=== PATIENT | male | born 1945 | race Caucasian/White ===

== ENCOUNTER 2017-07-07 09:06 | Emergency (ER) | payer OTHER ==
[2017-07-07] MEDS ORDERED: Sodium Chloride 0.9% 10 ML Syringe FLUSH PRN (09:14)
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
[2017-07-07] MEDS ORDERED: HYDROmorphone 1 MG/ML Syringe IM ONE (11:11)
[2017-07-07 11:29] VITALS: BP 162/87
== END 2017-07-07 11:37 | disposition home or self-care (01) ==
LOC: JP.ED 09:06
DX: R51 Headache (principal); Z87.891 Personal history of nicotine dependence; I10 Essential (primary) hypertension; Z79.899 Other long term (current) drug therapy; Z88.2 Allergy status to sulfonamides
CPT/HCPCS: 36415; 70450; 80053; 82962; 85025; 96372; 99284; J1170; J7050; 99283

== ENCOUNTER 2018-09-18 10:37 | Emergency (ER) | payer OTHER ==
[2018-09-18 10:57] VITALS: BP 148/71
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
--- NOTE | 2018-09-18 12:32 | CT ---
Head wo Cont CLINICAL HISTORY: Double vision COMPARISON: 07/07/2017 TECHNIQUE: Transverse scans were obtained from the base of the skull through the vertex without IV contrast on a multislice, multidetector CT scanner. Auto dosage reduction and iterative reconstruction techniques employed. FINDINGS: There is a well-demarcated focus of encephalomalacia involving the right occipital lobe. There is some scattered low-attenuation in the periventricular and subcortical white matter There is no mass effect, hemorrhage, or extraaxial collection. The basal cisterns and sulci over the convexities are prominent. The ventricles are asymmetric with some mild ex vacuo dilatation of the right lateral ventricle. IMPRESSION: Focus of stable encephalomalacia in the right the occipital lobe at the site of previous hemorrhage in 2016 Atrophic changes Chronic ischemic microvascular changes
== END 2018-09-18 13:06 | disposition home or self-care (01) ==
LOC: JP.ED 10:37
DX: R42 Dizziness and giddiness (principal); I10 Essential (primary) hypertension; E78.00 Pure hypercholesterolemia, unspecified; Z95.5 Presence of coronary angioplasty implant and graft; Z79.899 Other long term (current) drug therapy; Z88.2 Allergy status to sulfonamides
CPT/HCPCS: 36415; 70450; 70450-26; 80053; 85025; 93005; 93010; 99285-25

== ENCOUNTER 2019-05-01 16:05 | Emergency (ER) | payer OTHER ==
[2019-05-01] MEDS ORDERED: Bacitracin Oint 1 GM U/D Packet TOP ONE (17:51)
[2019-05-01] MEDS ORDERED: Lidocaine 1% with EPINEPHrine 1:100,000 50 ML MDV SUBCUT STA (17:51)
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
[2019-05-01 18:21] VITALS: BP 152/80; PULSE 69
[2019-05-01] MEDS ORDERED: fentaNYL 100 MCG/2 ML SDV NASBOTH ONE (18:24)
--- NOTE | 2019-05-01 18:57 | CRLCT ---
INDICATION: Head injury TECHNIQUE: Head CT without contrast. COMPARISON: September 18, 2018 FINDINGS: CSF spaces: Within normal limits for age. Brain parenchyma: There are nonspecific low attenuation white matter changes consistent with chronic microvascular disease. No sign of mass, hemorrhage, or midline shift. Encephalomalacia in the right occipital lobe with associated ex vacuo dilatation of the right lateral ventricle. Skull base and calvarium: The visualized paranasal sinuses and mastoid air cells demonstrate no acute or significant findings. The visualized orbits are grossly unremarkable. No skull fractures. There is intracranial atherosclerosis. Soft tissue contusion of the right forehead. IMPRESSION: 1. No acute intracranial hemorrhage or skull fracture. Soft tissue contusion on the right forehead. 2. Nonspecific white matter disease, typical of chronic microvascular disease. 3. 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 Please note that all CT scans at this facility use dose modulation, iterative reconstruction, and/or weight-based dosing when appropriate to reduce radiation dose to as low as reasonably achievable. Dictated by Darlene Caceres MD @ May 01 2019 6:53PM Signed by Dr. Darlene Caceres @ May 01 2019 6:56PM
--- NOTE | 2019-05-01 19:23 | CRLCT ---
INDICATION: Head injury, contusion on right forehead TECHNIQUE: CT maxillofacial without contrast. COMPARISON: None FINDINGS: Facial bones: No fractures or bone lesions. Specifically the nasal bones, temporomandibular joints, maxilla and mandible appear intact. Orbits and globes: Unremarkable. Sinuses: No acute or significant findings. Soft tissues: Small soft tissue contusion on the right forehead. Anterior surgical plate and screw hardware at C4. IMPRESSION: No acute fracture. Soft tissue contusion in the right forehead. Please note that all CT scans at this facility use dose modulation, iterative reconstruction, and/or weight-based dosing when appropriate to reduce radiation dose to as low as reasonably achievable. Dictated by Darlene Caceres MD @ May 01 2019 6:56PM (Electronically Signed)
== END 2019-05-01 20:03 | disposition home or self-care (01) ==
LOC: JP.ED 16:05
DX: S01.81XA Laceration without foreign body of other part of head, initial encounter (principal); I10 Essential (primary) hypertension; E78.00 Pure hypercholesterolemia, unspecified; Z79.899 Other long term (current) drug therapy; Z88.2 Allergy status to sulfonamides; Z90.49 Acquired absence of other specified parts of digestive tract; Y04.8XXA Assault by other bodily force, initial encounter
CPT/HCPCS: 12013; 70450; 70486; 99283; J3010

== ENCOUNTER 2021-07-13 06:33 | Day surgery (SDC) | payer MEDICARE, OTHER ==
[2021-07-13] MEDS ORDERED: Midazolam 1 MG/ML 2 ML SDV ONE (07:06)
[2021-07-13] MEDS ORDERED: fentaNYL 100 MCG/2 ML SDV ONE (07:06)
[2021-07-13] MEDS ORDERED: Propofol 200 MG/20 ML SDV ONE (07:06)
[2021-07-13] MEDS ORDERED: Sodium Chloride 0.9% 1,000 ML IV SCH (08:15)
[2021-07-13 09:17] VITALS: PULSE 57
[2021-07-13 09:52] VITALS: BP 152/91
--- NOTE | 2021-07-13 10:23 | OR ---
DATE OF PROCEDURE: 07/13/2021 SURGEON: Cordell Riley MD PROCEDURE: Colonoscopy. FINDINGS: Normal colonoscopy. COMPLICATIONS: None. 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 PREOPERATIVE DIAGNOSIS: Unintentional weight loss. POSTOPERATIVE DIAGNOSIS: Unintentional weight loss. RISKS: Risks, benefits, alternatives, and limitations including, but not limited to infection, bleeding, perforation, false positives and false negatives were explained to the patient and the patient wished to proceed. DESCRIPTION OF PROCEDURE: The patient was placed in left lateral decubitus position. Digital rectal exam was performed without abnormality. The scope was introduced and advanced atraumatically to the ileocecal valve. A photo was taken. The scope was brought back to the ascending, transverse, descending colon, and retroflexed. No evidence of old or new blood. No masses. No polyps. No colitis. No diverticulosis. No abnormalities on retroflexion. Greater than 8 minutes was spent removing the scope. Prep was acceptable, approximately 90% of luminal surface could be seen. The patient tolerated procedure well. Cordell Riley MD /[id number]
== END 2021-07-13 10:10 | disposition home or self-care (01) ==
LOC: JP.SDS 06:33
PROVIDERS: ATTEND Surgery
DX: R63.4 Abnormal weight loss (principal); D64.9 Anemia, unspecified; I25.10 Atherosclerotic heart disease of native coronary artery without angina pectoris; Z88.2 Allergy status to sulfonamides
CPT/HCPCS: 45378; J2250; J2704; J3010; J7030

== ENCOUNTER 2023-09-21 12:33 | Emergency (ER) | payer MEDICARE, OTHER ==
[2023-09-21 13:06] LABS: BASOPHILS PERCENT AUTO 0.2 % (0.1-1.3); EOSINOPHILS ABSOLUTE AUTO 0.27 K/uL (0.00-0.40); EOSINOPHILS PERCENT AUTO 5.5 % (0.0-5.4); HEMATOCRIT 32.4 % (38.4-49.7); HEMOGLOBIN 10.9 g/dL (12.9-16.9); IMMATURE GRAN PERCENT AUTO 0.4 % (0.0-0.7); LYMPHOCYTES ABSOLUTE AUTO 1.41 K/uL (0.8-3.3); LYMPHOCYTES PERCENT AUTO 28.8 % (11.4-47.7); MEAN CORPUSCULAR HEMOGLOBIN 31.1 pg (31.6-35.5); MEAN CORPUSCULAR HGB CONC 33.6 g/dL (31.6-35.5); MEAN CORPUSCULAR VOLUME 92.6 fL (81.4-99.0); MONOCYTES ABSOLUTE AUTO 0.42 K/uL (0.20-0.90); MONOCYTES PERCENT AUTO 8.6 % (3.3-12.6); NEUTROPHILS ABSOLUTE AUTO 2.77 K/uL (1.0-7.6); NEUTROPHILS PERCENT AUTO 56.5 % (40.0-78.1); PLATELET COUNT,PLT 72 K/uL (130-375); WHITE BLOOD CELL COUNT,WBC 4.9 K/uL (3.2-11.0)
[2023-09-21 13:08] LABS: BASOPHILS ABSOLUTE AUTO 0.01 K/uL (0.00-0.10); IMMATURE GRAN ABSOLUTE AUTO 0.02 K/uL (0.00-0.23)
[2023-09-21 13:28] LABS: A/G RATIO 1.1 (1.2-2.2); ALANINE AMINOTRANSFERASE,ALT 22 U/L (12-78); ALBUMIN 3.5 g/dL (3.4-5.0); ALKALINE PHOSPHATASE 69 U/L (46-116); ANION GAP 6.7 mmol/L (5.0-14.0); ASPARTATE AMNIOTRANSFERASE,AST 19 U/L (15-37); BILIRUBIN TOTAL 0.8 mg/dL (0.2-1.0); BLOOD UREA NITROGEN,BUN 21 mg/dL (7-18); CALCIUM 8.5 mg/dL (8.5-10.1); CARBON DIOXIDE,CO2 30 mmol/L (21-32); CHLORIDE,CL 105 mmol/L (100-108); CREATININE 1.3 mg/dL (0.8-1.3); EST CRCL DRUG DOSING (CG) 46.04 mL/min; ESTIMATED GFR 57 mL/min (>60); GLUCOSE RANDOM 101 mg/dL (74-106); PHOSPHORUS 3.5 mg/dL (2.5-4.9); POTASSIUM,K 3.9 mmol/L (3.6-5.2); PROTEIN TOTAL,TP 6.7 g/dL (6.4-8.2); SODIUM,NA 142 mmol/L (140-148)
[2023-09-21 13:45] LABS: INR 1.2; PROTHROMBIN TIME 11.6 sec (9.2-10.6); PTT,PARTIAL THROMBOPLSTIN TIME 25.4 sec (21.8-27.3)
[2023-09-21 14:03] LABS: APPEARANCE,URINE CLEAR (CLEAR); BILIRUBIN,URINE NEGATIVE (NEGATIVE); COLOR,URINE YELLOW (YELLOW); GLUCOSE,URINE NEGATIVE (NEGATIVE); KETONES,URINE NEGATIVE (NEGATIVE); LEUKOCYTE ESTERASE,URINE NEGATIVE (NEGATIVE); NITRITE,URINE NEGATIVE (NEGATIVE); OCCULT BLOOD,URINE MODERATE (NEGATIVE); PROTEIN,URINE NEGATIVE (NEGATIVE); UROBILINOGEN,URINE 0.2 EU/dL (0.2-1.0)
[2023-09-21 14:09] LABS: AMORPHOUS SEDIMENT,URINE NOT SEEN; BACTERIA,URINE FEW; EPITHELIAL CELLS,URINE NOT SEEN; MUCUS,URINE NOT SEEN; RBC,URINE 20-30 (0-5); WBC,URINE 0-5 (0-5)
[2023-09-21 15:13] VITALS: BP 119/62; PULSE 53
== END 2023-09-21 16:17 | disposition home or self-care (01) ==
LOC: JP.ED 12:33
DX: D69.6 Thrombocytopenia, unspecified (principal); R31.21 Asymptomatic microscopic hematuria; I13.10 Hypertensive heart and chronic kidney disease without heart failure, with stage 1 through stage 4 chronic kidney disease, or unspecified chronic kidney disease; N18.31 Chronic kidney disease, stage 3a; R60.0 Localized edema; D64.9 Anemia, unspecified; E78.00 Pure hypercholesterolemia, unspecified; I25.10 Atherosclerotic heart disease of native coronary artery without angina pectoris; Z88.2 Allergy status to sulfonamides; Z79.899 Other long term (current) drug therapy
CPT/HCPCS: 36415; 80053; 81001; 83735; 84100; 85025; 85610; 85730; 86140; 93970; 93970-26; 99284

== ENCOUNTER 2024-09-03 02:47 | Emergency (ER) | payer MEDICARE, OTHER ==
[2024-09-03 03:12] LABS: BASOPHILS PERCENT AUTO 0.2 % (0.1-1.3); EOSINOPHILS ABSOLUTE AUTO 0.12 K/uL (0.00-0.40); EOSINOPHILS PERCENT AUTO 2.7 % (0.0-5.4); HEMATOCRIT 32.8 % (38.4-49.7); HEMOGLOBIN 11.4 g/dL (12.9-16.9); IMMATURE GRAN PERCENT AUTO 0.2 % (0.0-0.7); LYMPHOCYTES ABSOLUTE AUTO 0.98 K/uL (0.8-3.3); LYMPHOCYTES PERCENT AUTO 22.2 % (11.4-47.7); MEAN CORPUSCULAR HEMOGLOBIN 31.4 pg (31.6-35.5); MEAN CORPUSCULAR HGB CONC 34.8 g/dL (31.6-35.5); MEAN CORPUSCULAR VOLUME 90.4 fL (81.4-99.0); MONOCYTES ABSOLUTE AUTO 0.39 K/uL (0.20-0.90); MONOCYTES PERCENT AUTO 8.8 % (3.3-12.6); NEUTROPHILS ABSOLUTE AUTO 2.91 K/uL (1.0-7.6); NEUTROPHILS PERCENT AUTO 65.9 % (40.0-78.1); PLATELET COUNT,PLT 82 K/uL (130-375); RED BLOOD CELL COUNT 3.63 M/uL (4.14-5.76); WHITE BLOOD CELL COUNT,WBC 4.4 K/uL (3.2-11.0)
[2024-09-03 03:14] LABS: BASOPHILS ABSOLUTE AUTO 0.01 K/uL (0.00-0.10); IMMATURE GRAN ABSOLUTE AUTO 0.01 K/uL (0.00-0.23)
[2024-09-03] MEDS: Sodium Chloride 0.9% 1,000 ML IV SCH ×2 (03:27→04:39)
[2024-09-03 03:37] LABS: A/G RATIO 1.1 (1.2-2.2); ALANINE AMINOTRANSFERASE,ALT 16 U/L (12-78); ALBUMIN 3.9 g/dL (3.4-5.0); ALKALINE PHOSPHATASE 68 U/L (46-116); ANION GAP 10.8 mmol/L (5.0-14.0); ASPARTATE AMNIOTRANSFERASE,AST 26 U/L (15-37); BILIRUBIN TOTAL 0.9 mg/dL (0.2-1.0); BLOOD UREA NITROGEN,BUN 39 mg/dL (7-18); CALCIUM 9.1 mg/dL (8.5-10.1); CARBON DIOXIDE,CO2 25 mmol/L (21-32); CHLORIDE,CL 106 mmol/L (100-108); CREATININE 2.1 mg/dL (0.8-1.3); ESTIMATED GFR 32 mL/min (>60); GLUCOSE RANDOM 93 mg/dL (74-106); PROTEIN TOTAL,TP 7.4 g/dL (6.4-8.2); SODIUM,NA 142 mmol/L (140-148)
[2024-09-03] MEDS: OLANZapine 10 MG Vial IM ONE (04:36)
[2024-09-03] MEDS: QUEtiapine 100 MG Tab PO ONE (09:21)
[2024-09-03] MEDS: QUEtiapine 25 MG Tab PO ONE (09:21)
[2024-09-03] MEDS: Memantine 5 MG Tab PO SCH (09:21)
[2024-09-03 09:49] VITALS: BP 125/87; PULSE 119
== END 2024-09-03 09:45 ==
LOC: JP.ED 02:47
DX: F03.90 Unspecified dementia, unspecified severity, without behavioral disturbance, psychotic disturbance, mood disturbance, and anxiety (principal); E86.0 Dehydration; N28.9 Disorder of kidney and ureter, unspecified; E78.00 Pure hypercholesterolemia, unspecified; I25.10 Atherosclerotic heart disease of native coronary artery without angina pectoris; Z86.73 Personal history of transient ischemic attack (TIA), and cerebral infarction without residual deficits; Z79.899 Other long term (current) drug therapy; Z88.2 Allergy status to sulfonamides; Z90.49 Acquired absence of other specified parts of digestive tract; Z95.1 Presence of aortocoronary bypass graft
CPT/HCPCS: 36415; 74176; 80053; 83605; 83735; 85025; 86140; 96360; 96361; 96372; 99285; A9270; J2359; J7030

== ENCOUNTER 2024-10-03 13:11 | Emergency (ER) | payer MEDICARE, OTHER ==
[2024-10-03 13:37] VITALS: BP 122/87; PULSE 110
[2024-10-03] MEDS: LORazepam 2 MG/ML SDV IM ONE (17:00)
[2024-10-03] MEDS: Haloperidol Lactate 5 MG/ML SDV IM ONE (17:00)
== END 2024-10-03 17:18 ==
LOC: JP.ED 13:11
DX: F03.C11 Unspecified dementia, severe, with agitation (principal); I10 Essential (primary) hypertension; I25.10 Atherosclerotic heart disease of native coronary artery without angina pectoris; Z88.2 Allergy status to sulfonamides; Z79.899 Other long term (current) drug therapy; Z90.49 Acquired absence of other specified parts of digestive tract; Z87.891 Personal history of nicotine dependence
CPT/HCPCS: 96372; 99284; 99285; J1630; J2060